=== PATIENT | female | born 1940 | race Caucasian/White ===

== ENCOUNTER 2019-11-01 10:01 | Emergency (ER) | payer BC, MEDICARE ==
[2019-11-01 11:19] LABS: #Eosinphils 0.2 thou/uL (0.0-0.7); #Lymphocytes 1.3 thou/uL (1.20-3.40); #Monocytes 0.7 thou/uL (0.11-0.59); %Basophils 0.1 % (0.0-1.0); %Eosinophils 1.9 % (0.0-10.0); %Lymphocytes 13.8 % (21.0-51.0); %Monocytes 7.7 % (0.0-10.0); %Neutrophils 76.6 % (42.0-75.0); Hemoglobin 7.4 g/dL (12.0-16.0); Mean Corpuscular HGB CONC 32.1 g/dL (32.0-36.0); Mean Corpuscular Hemoglobin 30.5 pg (27.0-31.0); Mean Corpuscular Volume 95.1 fL (78.0-98.0); Mean Platelet Volume 8.1 fL (7.4-10.4); Platelet Count 184 thou/uL (130-400); RBC Distribution Width 16.3 % (11.5-14.5); Red Blood Cell (RBC) Count 2.43 mill/uL (4.20-5.40); White Blood Cell (WBC) Count 9.1 thou/uL (4.8-10.8)
[2019-11-01 11:20] LABS: INR-International Normal Ratio 0.9; Prothrombin Time 12.6 sec (12.0-14.7)
[2019-11-01 11:32] LABS: ALT (SGPT) 8 U/L (8-55); AST (SGOT) 24 U/L (5-34); Albumin 3.3 g/dL (3.4-4.8); Alkaline Phosphatase 109 U/L (40-110); Anion Gap 15 mmol/L (10-20); BUN (Urea Nitrogen) 34 mg/dL (9.8-20.1); Bilirubin, Total 0.7 mg/dL (0.2-1.2); Calc. Creatinine Clearance 0 mL/min (70-130); Calcium 8.4 mg/dL (7.8-10.44); Carbon Dioxide 28 mmol/L (23-31); Chloride 96 mmol/L (98-107); Estimated GFR-MDRD 29; Globulin 3.5 g/dL (2.4-3.5); Glucose 124 mg/dL (83-110); Potassium 4.4 mmol/L (3.5-5.1); Protein, Total 6.8 g/dL (6.0-8.3); Sodium 135 mmol/L (136-145)
[2019-11-01] MEDS ORDERED: Pantoprazole 40 MG VIAL ONE (11:39)
[2019-11-01 12:20] LABS: PTT 17.1 SEC (22.9-36.1)
== END 2019-11-01 13:28 | disposition home or self-care (01) ==
LOC: ERS 10:01
DX: D64.9 Anemia, unspecified (principal); I10 Essential (primary) hypertension; M19.90 Unspecified osteoarthritis, unspecified site; M48.00 Spinal stenosis, site unspecified; F41.9 Anxiety disorder, unspecified; F32.9 Major depressive disorder, single episode, unspecified; Z79.899 Other long term (current) drug therapy; Z79.891 Long term (current) use of opiate analgesic
CPT/HCPCS: 36415; 80053; 82274; 84484; 85025; 85610; 85730; 86850; 86900; 86901; 93005; 94760; C9113

== ENCOUNTER 2020-04-26 08:29 | Outpatient (CLI) | payer MEDICARE, BC ==
--- NOTE | 2020-04-26 14:17 | CT ---
CT abdomen and pelvis with IV and oral contrast HISTORY: Abdominal pain. COMPARISON: 12/01/2013 and 03/19/2016. FINDINGS: The lung bases are clear. Gallbladder is surgically absent. A partial staghorn calculus at the inferior pole of the left kidney now measures up to 2.5 cm greatest oblique diameter on the coronal reformatted images. There are additional adjacent smaller calculi on the left. No hydronephro sis. Hyperdense cyst at the anterior cortex of the right kidney is 1.7 cm greatest oblique diameter on tod ema's axial images. There is long segment subtle circumferential wall thickening of the transverse colon and left colon. Scattered diverticula of the colon are apparent, although the wall thickening is not focal or associated with a specific diverticulum. Fat protruding into an umbilical hernia similar in appearanc e to the prior study. Pelvis is partially obscured by prominent beam hardening artifact from bilateral hip prostheses. 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 Hardware loosening of the acetabular component are stable. IMPRESSION : Long segment circumferential wall thickening of the transverse colon and left colon. While scattered diverticula are present, appearance is not typical for diverticulitis. Consider other causes of long segment mild colitis such as infection. Large nonobstructing left renal calculi are stable. 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 Umbilical hernia. Other chronic-type findings are stable.
== END 2020-04-26 08:30 | disposition home or self-care (01) ==
LOC: SCSCT 08:29
PROVIDERS: ATTEND Internal Medicine Gastroenterology
DX: R10.9 Unspecified abdominal pain (principal); K63.89 Other specified diseases of intestine; K57.90 Diverticulosis of intestine, part unspecified, without perforation or abscess without bleeding; N20.0 Calculus of kidney; K42.9 Umbilical hernia without obstruction or gangrene; T85.628A Displacement of other specified internal prosthetic devices, implants and grafts, initial encounter
CPT/HCPCS: 74177